=== PATIENT | female | born 1975 | race Caucasian/White ===

== ENCOUNTER 2017-12-25 13:10 | Day surgery (SDC) | payer OTHER ==
[~2017-12-25 13:10] MED LIST: LIDOCAINE 2% (SDV) 5 ML INJ
[2017-12-25] MEDS ORDERED: SOD CHLORIDE 0.9% 1,000 ML IV (14:00)
[2017-12-25] MEDS ORDERED: CEFAZOLIN 2 GM/50 ML (PMX) 50 ML IVPB (14:00)
[2017-12-25] MEDS ORDERED: EPHEDrine SULFATE 50 MG/5 ML SYG IV (14:30)
[2017-12-25] MEDS ORDERED: MIDAZOLAM 1 MG/ML 2 ML INJ IV (14:30)
[2017-12-25] MEDS ORDERED: METOCLOPRAMIDE 10 MG INJ IV (14:30)
[2017-12-25] MEDS ORDERED: OXYCODONE/ACETAMINOPHEN (5/325) TAB PO ×2 (14:30)
[2017-12-25] MEDS ORDERED: ONDANSETRON 4 MG INJ IV (14:30)
[2017-12-25] MEDS ORDERED: HYDROmorphONE (0.2 MG/ML) 10ML SYG IV ×3 (14:30)
[2017-12-25] MEDS ORDERED: ALBUTEROL 0.083% (NEB) 2.5 MG/3 ML AMP HHN (14:30)
[2017-12-25] MEDS ORDERED: MEPERIDINE 25 MG INJ IV (14:30)
[2017-12-25] MEDS ORDERED: FENTAnyl 50 MCG/ML VIAL IV ×3 (14:30)
[2017-12-25] MEDS ORDERED: hydrALAzine 20 MG INJ IV (14:30)
[2017-12-25] MEDS ORDERED: LABETALOL HCL 20MG INJ IV (14:30)
[2017-12-25] MEDS ORDERED: KETOROLAC 30 MG INJ IV (14:30)
[2017-12-25] MEDS ORDERED: INSULIN ASPART [NOVOLOG] 3 ML PEN SC (14:30)
[2017-12-25] MEDS ORDERED: DIPHENHYDRAMINE 50 MG INJ IV (14:30)
[2017-12-25 15:19] LABS: ADD MAN DIFF? NO
[2017-12-25 15:35] LABS: ANION GAP 15 (8-16); CARBON DIOXIDE 28 mmol/L (21-31); CHLORIDE 105 mmol/L (97-110); GLUCOSE 103 mg/dl (70-220)
[2017-12-25 15:38] LABS: BLOOD UREA NITROGEN 8 mg/dl (7-20); CALCIUM 8.9 mg/dl (8.4-10.2); CREATININE 0.49 mg/dl (0.44-1.00); POTASSIUM 3.9 mmol/L (3.5-5.1); SODIUM 144 mmol/L (135-144)
[2017-12-25 15:43] LABS: BASOPHILS % 0.2 % (0.0-2.0); EOSINOPHILS # 0.1 10^3/ul (0.0-0.5); EOSINOPHILS % 1.1 % (0.0-7.0); HEMATOCRIT 35.8 % (37.0-47.0); HEMOGLOBIN 11.2 g/dl (12.0-16.0); LYMPHOCYTES # 2.1 10^3/ul (0.8-2.9); LYMPHOCYTES % 22.7 % (15.0-51.0); MEAN CORPUSCULAR HEMOGLOBIN 24.6 pg (29.0-33.0); MEAN CORPUSCULAR HGB CONC 31.3 g/dl (32.0-37.0); MEAN CORPUSCULAR VOLUME 78.5 fl (82.0-101.0); MEAN PLATELET VOLUME 10.3 fl (7.4-10.4); MONOCYTE # 0.5 10^3/ul (0.3-0.9); MONOCYTES % 5.8 % (0.0-11.0); NEUTROPHIL # 6.4 10^3/ul (1.6-7.5); NEUTROPHILS % 69.8 % (39.0-77.0); PLATELET COUNT 371 10^3/UL (140-415); RED BLOOD COUNT 4.56 10^6/ul (4.20-5.40); RED CELL DISTRIBUTION WIDTH 15.2 % (11.5-14.5)
[2017-12-25 15:43] LABS: WHITE BLOOD COUNT 9.1 10^3/ul (4.8-10.8)
[2017-12-25 16:14] LABS: INR 0.95; PROTIME 12.8 Sec (11.9-14.9)
[2017-12-25 16:17] LABS: PARTIAL THROMBOPLASTIN TIME 35.2 Sec (25.0-35.0)
[2017-12-25] MEDS ORDERED: PROPOFOL 20 ML (16:29)
[2017-12-25] MEDS ORDERED: BUPIVACAINE 0.25% (MPF) 30 ML INJ (16:31)
[2017-12-25] MEDS ORDERED: ONDANSETRON 4 MG INJ (16:53)
[2017-12-25] MEDS ORDERED: ACETAMINOPHEN 1000MG/100ML IV 100 ML (16:53)
[2017-12-25] MEDS ORDERED: ROCURONIUM 50 MG INJ (16:53)
[2017-12-25] MEDS ORDERED: DEXAMETHASONE 4 MG/ML 1 ML INJ (16:53)
[2017-12-25] MEDS ORDERED: CEFAZOLIN 1 GM INJ ×2 (16:53→17:05)
[2017-12-25] MEDS ORDERED: SUGAMMADEX SODIUM 200 MG/2 ML VIAL IV (17:06)
[2017-12-25] MEDS: BUPIVACAINE 0.25% (MPF) 30 ML INJ (17:19)
[2017-12-25] MEDS: HYDROCODONE/APAP (5/325) TAB PO (18:17)
== END 2017-12-25 19:03 | disposition home or self-care (01) ==
LOC: SDS 13:10
DX: K80.20 Calculus of gallbladder without cholecystitis without obstruction (principal); K81.1 Chronic cholecystitis; E03.9 Hypothyroidism, unspecified; E78.5 Hyperlipidemia, unspecified; E11.9 Type 2 diabetes mellitus without complications; E66.01 Morbid (severe) obesity due to excess calories; Z68.42 Body mass index [BMI] 45.0-49.9, adult; I10 Essential (primary) hypertension
CPT/HCPCS: 47562; 80048; 82962; 85025; 85610; 85730; 88304

== ENCOUNTER 2017-12-29 12:17 | Emergency (ER) | payer OTHER ==
[2017-12-29] MEDS: predniSONE 20 MG TAB PO (12:58)
[2017-12-29] MEDS: DIPHENHYDRAMINE 2.5 MG/ML 5ML CUP PO (12:58)
[2017-12-29 13:05] LABS: URINE BLOOD (Dip) POC Trace-intact (NEGATIVE); URINE GLUCOSE (Dip) POC Negative (NEGATIVE); URINE KETONES (Dip) POC Negative (NEGATIVE); URINE LEUKOCYTE EST (Dip) POC Negative (NEGATIVE); URINE NITRITE (Dip) POC Negative (NEGATIVE); URINE TOTAL PROTEIN POC Negative (NEGATIVE)
== END 2017-12-29 13:43 | disposition home or self-care (01) ==
LOC: FTE 12:17
DX: M54.9 Dorsalgia, unspecified (principal); T40.2X5A Adverse effect of other opioids, initial encounter; I10 Essential (primary) hypertension; E11.9 Type 2 diabetes mellitus without complications; Z79.4 Long term (current) use of insulin
CPT/HCPCS: 81003; 81025; 99283

== ENCOUNTER 2018-01-08 07:13 | Emergency (ER) | payer OTHER | END 2018-01-08 08:32 | disposition home or self-care (01) | LOC: FTE 07:13 | DX: J06.9 Acute upper respiratory infection, unspecified (principal); I10 Essential (primary) hypertension; E11.9 Type 2 diabetes mellitus without complications; E03.9 Hypothyroidism, unspecified; Z79.4 Long term (current) use of insulin | CPT/HCPCS: 99283; Z7502 ==